=== PATIENT | female | born 1975 | race Caucasian/White ===

== ENCOUNTER 2021-09-22 15:10 | Outpatient (CLI) | payer BC | END 2021-09-22 15:11 | disposition home or self-care (01) | LOC: CSHLAB 15:10 | PROVIDERS: ATTEND Obstetrics & Gynecology | DX: Z01.812 Encounter for preprocedural laboratory examination (principal); Z20.822 Contact with and (suspected) exposure to COVID-19 | CPT/HCPCS: 84703; 85027; 86850; 86900; 86901; U0003; U0005 ==

== ENCOUNTER 2021-09-26 11:25 | Day surgery (SDC) | payer BC ==
[2021-09-22 09:35] VITALS: BMI 37.4
[2021-09-22 15:57] LABS: Hemoglobin 14.6 g/dL (12.0-15.5); Mean Corpuscular HGB CONC 33.4 g/dL (32.0-36.0); Mean Corpuscular Hemoglobin 29.8 pg (27.0-33.0); Mean Corpuscular Volume 89.2 fl (81.6-98.3); Mean Platelet Volume 9.4 fl (7.4-10.4); Platelet Count 378 10x3/uL (150-450); RBC Distribution Width 12.6 % (11.5-14.5); White Blood Cell (WBC) Count 10.1 10x3/uL (3.5-10.5)
[2021-09-22 16:21] LABS: BHCG - Serum Negative (NEGATIVE); Pregs Control Background? CLEAR/WHITE (CLR/WHITE); Pregs Control Bar Appear? YES (CONTROL BAR)
[2021-09-23 00:09] LABS: SARS-CoV-2 PCR by NAA Not Detected (NotDetected)
[2021-09-26] MEDS ORDERED: CeleCOXIB 100 MG CAP ONE (11:39)
[2021-09-26] MEDS ORDERED: Gabapentin 300 MG CAP ONE (11:39)
[2021-09-26] MEDS ORDERED: Famotidine/PF 20 mg/2ml Vial ONE (11:40)
[2021-09-26] MEDS ORDERED: Lidocaine 1% MPF 2 ML VIAL ONE (11:40)
[2021-09-26] MEDS ORDERED: Rocuronium Bromide 10 MG/ML (10ML VIAL) ONE (12:16)
[2021-09-26] MEDS ORDERED: PROPOFOL 20 ML ONE (12:16)
[2021-09-26] MEDS ORDERED: Ondansetron PF 4 MG/2 ML Vial ONE (12:16)
[2021-09-26] MEDS ORDERED: Dexamethasone 4 mg/ml Vial ONE (12:16)
[2021-09-26] MEDS ORDERED: Lidocaine 1% PF 5 ML VIAL ONE (12:16)
[2021-09-26] MEDS ORDERED: Fentanyl 100 MCG/2 ML VIAL ONE ×4 (12:16→14:28)
[2021-09-26] MEDS ORDERED: EPINEPHrine 1 MG/ML AMP ONE (12:20)
[2021-09-26] MEDS ORDERED: Bupivacaine PF 0.5% 30 ML VIAL ONE (12:21)
[2021-09-26] MEDS ORDERED: Glycopyrrolate 0.2 MG/ML 5 ML SYRINGE ONE (12:27)
[2021-09-26] MEDS ORDERED: Midazolam HCl 2 mg/2 ml Vial ONE (12:30)
[2021-09-26] MEDS ORDERED: ceFAZolin 2 GM/Dextrose 50 ML IVPB ONE (12:35)
== END 2021-09-26 18:05 | disposition home or self-care (01) ==
LOC: CSHSDC 11:25
PROVIDERS: ATTEND Obstetrics & Gynecology
PROC: 0UT04ZZ Resection of Right Ovary, Percutaneous Endoscopic Approach (ICD-10-PCS; principal; 2021-09-26)
PROC: 0UT54ZZ Resection of Right Fallopian Tube, Percutaneous Endoscopic Approach (ICD-10-PCS; principal; 2021-09-26)
PROC: 8E0W8CZ Robotic Assisted Procedure of Trunk Region, Via Natural or Artificial Opening Endoscopic (ICD-10-PCS; principal; 2021-09-26)
DX: D27.0 Benign neoplasm of right ovary (principal); Z88.1 Allergy status to other antibiotic agents; Z97.5 Presence of (intrauterine) contraceptive device; Z20.822 Contact with and (suspected) exposure to COVID-19
CPT/HCPCS: 36415; 84703; 85027; 86850; 86900; 86901; 88307; J0171; J0690; J1100; J2250; J2405; J2704; J3010; S0020; S0028; U0003; U0005